=== PATIENT | female | born 1990 | race African-American/Black ===

== ENCOUNTER 2016-08-23 10:08 | Emergency (ER) ==
[2016-08-23 10:25] VITALS: TEMP 97.3; BMI 24.0
[2016-08-23 10:35] VITALS: BP 101/54
--- NOTE | 2016-08-23 10:46 | ED.PDOC ---
General ED Provider: Dr. CHRISTIE SENIOR JR Chief Complaint: Labor Stated Complaint: cm-WATER BROKE APPROX 0930.CONTRACTIONS STARTED AT 0500 THIS AM. WENT TO [facility] AND WAS SENT HOME 0300 DUE TO THINKING HER WATER HAD BROKEN BUT IT HAD NOT.[End]40 WEEKS . WATER BROKE.[id number].DELIVERED IN AMBULANCE AT 0952. crms-09:[id number] babygirl 97.4 160 40 20" 7#2.2oz head 35cm 8/10 Time Seen by Physician: 10:10 Mode of Arrival: Ambulance Information Source: Patient Exam Limitations: Clinical condition Primary Care Provider: Minh Referred to ED by: Other Seen Within Last 72 Hours for Same Complaint By: In-Patient Facility Nursing and Triage Documentation Reviewed and Agree: No CARE ADVOCATE Complaint Exam - Labor/Delivery Complaint/Exam Expected Date of Delivery: 08/22/16 Review of Systems - Review Of Systems Constitutional: Reports: Malaise Eyes: Reports: Other Ears, Nose, Mouth, Throat: Reports: No symptoms Respiratory: Reports: Other Cardiac: Reports: Other GI: Reports: Other : Reports: Other (infant delivered, placenta gradually followed, minimal bleeding infant normal girl) Musculoskeletal: Reports: Other (abdominal pain) Skin: Reports: No symptoms Neurological: Reports: Emotional problems (poorly responsive with contractions vitals fine) Endocrine: Reports: No symptoms Hematologic/Lymphatic: Reports: Other All Other Systems: Other Past Medical History - Past Medical History Previously Healthy: Yes Endocrine: Reports: None Cardiovascular: Reports: None Respiratory: Reports: None Hematological: Reports: None Gastrointestinal: Reports: None Genitourinary: Reports: None Neuro/Psych: Reports: None Musculoskeletal: Reports: None Cancer: Reports: None Last Menstrual Period: 9 MONTHS - Surgical History General Surgical History: Reports: None - Family History Family History: Reports: None - Social History Smoking Status: Former smoker Hx Substance Use: No Alcohol Screening: None Physical Exam - Physical Exam Appearance: Well-appearing, Thin Pain Distress: Moderate Eyes: LYNETTE, EOMI, Conjunctiva clear ENT: Ears normal, Nose normal, Oropharynx normal Neck: Supple Respiratory: Airway patent, Breath sounds clear, Breath sounds equal, Respirations nonlabored Cardiovascular: RRR, Pulses normal, No rub, No murmur GI/: Soft, Tender (gravid) Musculoskeletal: ROM intact, No edema Skin: Warm Neurological: Sensation intact, Motor intact, Reflexes intact, Cranial nerves intact, Alert, Oriented (as above) Psychiatric: Affect appropriate, Mood appropriate Critical Care Note - Critical Care Note Total Time (mins): 5 Course - Course Vital Signs: Temp Pulse Resp BP Pulse Ox 08/23/16 10:35 72 16 101/54 L 100 08/23/16 10:13 97.3 F L 83 16 101/63 100 Departure - Departure Time of Disposition: 10:48 Disposition: TSF SHORT-TRM HOSP Discharge Problem: Precipitate labor Condition: Good Pt referred to PMD for follow-up: Yes Allergies/Adverse Reactions: Allergies No Known Allergies Allergy (Verified 07/05/16 22:18) Home Medications: Ambulatory Orders Ferrous Sulfate [Slow Release Iron] 2 tab PO DAILY 07/05/16 Pnv95/Ferrous Fumarate/FA [ Caplet] 1 each PO DAILY 07/05/16
== END 2016-08-23 11:15 | disposition short-term general hospital (02) ==
LOC: ED 10:08
DX: O62.3 Precipitate labor (principal); Z3A.40 40 weeks gestation of pregnancy; Z37.0 Single live birth
CPT/HCPCS: 99285

== ENCOUNTER 2016-08-23 11:25 | Outpatient (CLI) ==
[2016-08-23 10:25] VITALS: BMI 24.0
== END 2016-08-23 11:26 | disposition home or self-care (01) ==
LOC: AMBL 11:25
PROVIDERS: ATTEND Emergency Medicine
DX: O80 Encounter for full-term uncomplicated delivery (principal); Z37.0 Single live birth; R10.9 Unspecified abdominal pain; R03.1 Nonspecific low blood-pressure reading; Z3A.40 40 weeks gestation of pregnancy

== ENCOUNTER → 2016-08-23 | Outpatient (CLI) ==
[2016-08-23 10:25] VITALS: BMI 24.0
== END ==
LOC: AMBL 09:55
PROVIDERS: ATTEND Emergency Medicine
DX: O80 Encounter for full-term uncomplicated delivery (principal); Z3A.40 40 weeks gestation of pregnancy; Z37.0 Single live birth

== ENCOUNTER 2016-12-02 16:49 | Outpatient (CLI) ==
[2016-12-02 17:05] LABS: FLU INTERNAL QC INTERNAL QC VALID; RAPID FLU A NEGATIVE (NEGATIVE); RAPID FLU B NEGATIVE (NEGATIVE)
== END 2016-12-02 16:50 | disposition home or self-care (01) ==
LOC: LAB 16:49
PROVIDERS: ATTEND Nurse Practitioner Family
DX: R68.83 Chills (without fever) (principal); J02.9 Acute pharyngitis, unspecified
CPT/HCPCS: 87804

== ENCOUNTER 2017-08-13 00:50 | Outpatient (CLI) ==
[2017-08-13 01:15] VITALS: BMI 21.1
== END 2017-08-13 00:51 | disposition left against medical advice (07) ==
LOC: AMBL 00:50
PROVIDERS: ATTEND Emergency Medicine
DX: R06.9 Unspecified abnormalities of breathing (principal)

== ENCOUNTER 2017-08-13 01:07 | Emergency (ER) ==
[2017-08-13 01:15] VITALS: BMI 21.1
--- NOTE | 2017-08-13 02:12 | ED.PDOC ---
General ED Provider: Dr. JAIME ISLAS Chief Complaint: Shortness of Air Stated Complaint: Came for the left side chest pain, has been short of breath for 2-3 days,. thinks having some trouble swallowing, so she is not been drinking much lately/ Time Seen by Physician: 02:10 Mode of Arrival: Walk-In Information Source: Patient Primary Care Provider: EMMIE MORGAN Nursing and Triage Documentation Reviewed and Agree: Yes Reviewed sepsis parameters & appropriate labs ordered?: Yes System Inflammatory Response Syndrome: Not Applicable Sepsis Protocol: For patient's 13 years and over: Temp is 96.8 and below OR 101 and greater Pulse >90 BPM Resp >20/minute Acutely Altered Mental Status Are patient's symptoms suggestive of a new infection, such as: -Pneumonia -Skin, Soft Tissue -Endocarditis -UTI -Bone, Joint Infection -Implantable Device -Acute Abdominal Infection -Wound Infection -Meningitis -Blood Stream Catheter Infection -Unknown Cardiovascular Complaint Exam - Chest Pain Complaint/Exam Onset: Gradual Symptoms Are: Resolved Timing: Intermittent Initial Severity: Mild Current Severity: Mild Location: Reports: Midsternal Pain Radiates: Reports: None Character: Reports: Dull, Aching Aggravating: Reports: None Alleviating: Reports: None Associated Signs and Symptoms: Reports: Short of air. Denies: Diaphoresis, Nausea, Vomiting, Fever, Palpitations, Cough, Hemoptysis, Back pain, Abdominal pain, Dizziness, Calf pain, Calf swelling Related Surgical History: Reports: None History of Healthcare-Acquired Pneumonia: Reports: No AMI/ACS Risk Factors: Reports: None TAD Risk Factors: Reports: None Pulmonary Embolism Risk Factors: Reports: None Prior Care for this Complaint: No Recent Stress Test: No Recent Echo/LV Function: No JVD Present: No Diminshed Breath Sounds: No Reproducible Chest Wall Pain: Yes Bilateral Pulses Present: No Unequal Pulses Noted: No If Risk Factors for AMI/ACS Consider: EKG, Cardiac Enzymes, Serial Studies, Oxygen Differential Diagnoses: Chest Wall Pain, GI Diseasae Review of Systems - Review Of Systems Constitutional: Reports: No symptoms Eyes: Reports: No symptoms Ears, Nose, Mouth, Throat: Reports: No symptoms Respiratory: Reports: Short of air Cardiac: Reports: Chest pain GI: Reports: No symptoms : Reports: No symptoms Musculoskeletal: Reports: No symptoms Skin: Reports: No symptoms Neurological: Reports: No symptoms Endocrine: Reports: No symptoms Hematologic/Lymphatic: Reports: No symptoms All Other Systems: Reviewed and Negative Past Medical History - Past Medical History Previously Healthy: Yes Endocrine: Reports: None Cardiovascular: Reports: None Respiratory: Reports: None Hematological: Reports: None Gastrointestinal: Reports: None Genitourinary: Reports: None Neuro/Psych: Reports: None Musculoskeletal: Reports: None Cancer: Reports: None Last Menstrual Period: 07/21/17 - Surgical History General Surgical History: Reports: None - Family History Family History: Reports: None - Social History Smoking Status: Former smoker Hx Substance Use: No Alcohol Screening: None - Immunizations Tetanus Shot up to Date: Yes Physical Exam - Physical Exam Appearance: Well-appearing, No pain distress, Well-nourished Eyes: LYNETTE, EOMI, Conjunctiva clear ENT: Ears normal, Nose normal, Oropharynx normal Neck: Supple (swollen) Respiratory: Airway patent, Breath sounds clear, Breath sounds equal, Respirations nonlabored Cardiovascular: RRR, Pulses normal, No rub, No murmur GI/: Soft, Nontender, No masses, Bowel sounds normal, No Organomegaly Musculoskeletal: Normal strength, ROM intact, No edema, No calf tenderness Skin: Warm, Dry, Normal color Neurological: Sensation intact, Motor intact, Reflexes intact, Cranial nerves intact, Alert, Oriented Psychiatric: Affect appropriate, Mood appropriate Critical Care Note - Critical Care Note Total Time (mins): 15 Course - Course Orders, Labs, Meds: Orders Category Date Time Status EKG-(ED ONLY) Stat CARDIO 08/13/17 02:08 Ordered CBC W/ AUTO DIFF Stat LAB 08/13/17 02:08 Ordered COMPREHENSIVE METABOLIC PANEL Stat LAB 08/13/17 02:08 Ordered CREATINE KINASE Stat LAB 08/13/17 02:08 Ordered FREE T4 (FREE THYROXINE) Stat LAB 08/13/17 02:08 Ordered THYROID STIMULATING HORMONE Stat LAB 08/13/17 02:08 Ordered TROPONIN I Stat LAB 08/13/17 02:08 Ordered CHEST, 2 VIEWS PA & LAT Stat RADS 08/13/17 02:[address] SOFT TISSUE NECK W/O CONTR Stat RADS 08/13/17 02:08 Ordered Vital Signs: Temp Pulse Resp BP Pulse Ox 08/13/17 01:07 98.5 F 82 18 118/74 98 RONNI Risk Score RONNI Risk Score: Risk Score Odds of by 30D 0 0.1 (0.1-0.2) 1 0.3 (0.2-0.3) 2 0.4 (0.3-0.5) 3 0.7 (0.6-0.9) 4 1.2 (1.0-1.5) 5 2.2 (1.9-2.6) 6 3.0 (2.5-3.6) 7 4.8 (3.8-6.1) Departure - Departure Time of Disposition: 02:14 Disposition: HOME SELF-CARE Discharge Problem: Chest pain Qualifiers: Chest pain type: other chest pain Qualified Code(s): R07.89 - Other chest pain ; R07.8 - Other chest pain Instructions: Chest Pain (ED) Condition: Stable Pt referred to PMD for follow-up: No Additional Instructions: Needs have f/u with PMD in 2-4 days Increase Hydration Allergies/Adverse Reactions: Allergies No Known Allergies Allergy (Verified 08/13/17 01:15) Home Medications: Ambulatory Orders 1 [No Reported Medications] 08/13/17 Disposition Discussed With: Patient
--- NOTE | 2017-08-13 04:07 | CT ---
Exam: CT of the neck without contrast History: Neck swelling Technique: [address] of the neck without intravascular contrast FINDINGS: The exam is technically inhibited without intravascular contrast. The pharynx and trachea appear normal. Normal prevertebral soft tissues and cervical esophagus. Enlarged, heterogeneous an d hypodense thyroid. Normal submandibular and parotid glands. Visualized paranasal sinuses are carlos r. No edematous change seen in the limited fat planes. No pathologic lymph node enlargement apprecia vonda. No acute findings of the skeleton. Impression: 1. Enlarged, heterogeneous and predominately hypodense thyroid. Correlate for thyroid symptoms. 2. No abnormalities of the neck by noncontrast CT otherwise.
[2017-08-13 05:16] VITALS: BP 102/58; TEMP 97.8
--- NOTE | 2017-08-13 09:24 | DI ---
EXAM: Chest PA and lateral HISTORY: Shortness of breath FINDINGS: Prior studies are not available for comparison. The lungs are free of acute airspace or int erstitial opacities. The aorta is normal in caliber. The heart size is normal. The bones are intact. No pneumothorax or pleural effusions are detected. IMPRESSION: No acute cardiopulmonary disease.
== END 2017-08-13 05:10 | disposition home or self-care (01) ==
LOC: ED 01:07
DX: R07.89 Other chest pain (principal); R06.02 Shortness of breath; R13.10 Dysphagia, unspecified
CPT/HCPCS: 36415; 80053; 80306; 81001; 81025; 82550; 82553; 84439; 84443; 84484; 85025; 93005; 93010; 99283

== ENCOUNTER 2018-05-29 15:55 | Emergency (ER) ==
[2018-05-29 16:05] VITALS: BP 108/69; TEMP 97.5; BMI 19.3
--- NOTE | 2018-05-29 17:03 | ED.PDOC ---
General ED Provider: Dr. MARK JHAVERI Chief Complaint: Finger Pain/Injury Stated Complaint: Injured lt thumb. Patient states she accidently closed the car door on the left thumb door resulting Door closed completely on the distal 1 /3 of her thumb. Pt had to open door latch to remove thumb. Thumbnail is broken. Notes found out yesterday is Time Seen by Physician: 16:50 Mode of Arrival: Walk-In Information Source: Patient Primary Care Provider: EMMIE MORGAN Nursing and Triage Documentation Reviewed and Agree: Yes Does patient meet sepsis criteria?: No System Inflammatory Response Syndrome: Not Applicable Sepsis Protocol: For patient's 13 years and over: Temp is 96.8 and below OR 101 and greater Pulse >90 BPM Resp >20/minute Acutely Altered Mental Status Are patient's symptoms suggestive of a new infection, such as: -Pneumonia -Skin, Soft Tissue -Endocarditis -UTI -Bone, Joint Infection -Implantable Device -Acute Abdominal Infection -Wound Infection -Meningitis -Blood Stream Catheter Infection -Unknown Musculoskeletal Complaint Exam - Hand/Wrist Complaint/Exam Location of Pain: Reports: Left, Digit #1 Mechanism of Injury: Reports: Trauma Onset/Duration: this afternoon Symptoms Are: Still present Onset of Pain: Reports: Immediate Initial Severity: Severe Current Severity: Moderate Location: Reports: Discrete Character: Reports: Sharp, Throbbing Alleviating: Reports: Rest Aggravating: Reports: Movement Associated Signs and Symptoms: Reports: Tingling Dominant Hand: Right Related Surgical History: Reports: None Hand/Wrist Findings: Present: Swelling (Lt Thumb), Nail avulsion (Distal 1/3 Nail complete horizonal split-bleeding ) Tenderness: Present: Phalanx. Absent: Radius, Ulna, Snuff box, Carpal, Metacarpal Compartment Syndrome Risk Factors: Absent: Pain, Pallor, Pulselessness, Paresthesias Differential Diagnoses: Sprain, Other (Fracture) Review of Systems - Review Of Systems Constitutional: Reports: No symptoms Eyes: Reports: No symptoms Ears, Nose, Mouth, Throat: Reports: No symptoms Respiratory: Reports: No symptoms Cardiac: Reports: No symptoms GI: Reports: No symptoms : Reports: No symptoms Musculoskeletal: Reports: Joint pain, Joint swelling Skin: Reports: No symptoms Neurological: Reports: No symptoms Endocrine: Reports: No symptoms Hematologic/Lymphatic: Reports: No symptoms All Other Systems: Reviewed and Negative Past Medical History - Past Medical History Previously Healthy: Yes Endocrine: Reports: None Cardiovascular: Reports: None Respiratory: Reports: None Hematological: Reports: None Gastrointestinal: Reports: None Genitourinary: Reports: None Neuro/Psych: Reports: None Musculoskeletal: Reports: None Cancer: Reports: None Last Menstrual Period: 04/21 - Surgical History General Surgical History: Reports: None - Family History Family History: Reports: None - Social History Smoking Status: Former smoker Hx Substance Use: No Alcohol Screening: None - Immunizations Tetanus Shot up to Date: (unknown) Physical Exam - Physical Exam Appearance: Well-appearing, Well-nourished Ill-appearing: None Pain Distress: Moderate Eyes: LYNETTE, EOMI, Conjunctiva clear ENT: Ears normal, Nose normal, Oropharynx normal Respiratory: Airway patent, Breath sounds clear, Breath sounds equal, Respirations nonlabored Cardiovascular: RRR, Pulses normal, No rub, No murmur GI/: Soft, Nontender, No masses, Bowel sounds normal, No Organomegaly Musculoskeletal: Normal strength, ROM intact, No edema, No calf tenderness Skin: Warm, Dry, Normal color Neurological: Sensation intact, Motor intact, Reflexes intact, Cranial nerves intact, Alert, Oriented Psychiatric: Affect appropriate, Mood appropriate Critical Care Note - Critical Care Note Total Time (mins): 60 Course - Course Orders, Labs, Meds: Orders Category Date Time Status HAND, LEFT 3 VIEWS Stat RADS 05/29/18 18:23 Completed THUMB, LEFT Stat RADS 05/29/18 17:03 Completed Vital Signs: Temp Pulse Resp BP Pulse Ox 05/29/18 15:56 97.5 F L 70 18 108/69 97 Departure - Departure Time of Disposition: 19:15 Disposition: HOME SELF-CARE Discharge Problem: Injury of nail bed of left thumb, Fracture of distal phalanx of left thumb Discharge Problem: (Ruled Out): Nailbed laceration, finger Instructions: Thumb Fracture (ED), Nail Avulsion (ED) Condition: Good Pt referred to PMD for follow-up: Yes (advised to leave dressing in place until follow up by pcp.Schedule apt PVP) IPMP verified?: No Additional Instructions: Take antibiotic Take tylenol for pain control Follow up with your PCP clinic in next 24 hrs for evaluation and referral to orthopedic surgeon Prescriptions: Cephalexin [Keflex] 500 mg PO BID #14 capsule Allergies/Adverse Reactions: Allergies No Known Allergies Allergy (Verified 01/07/18 01:15) Home Medications: Ambulatory Orders Cephalexin [Keflex] 500 mg PO BID #14 capsule 05/29/18 Disposition Discussed With: Patient, Family
--- NOTE | 2018-05-29 18:16 | DI ---
EXAM: Three views of the left first digit. HISTORY: Crushing injury. FINDINGS: There is a minimally displaced fracture through the tuft of the distal phalanx of the left first digit. The joint spaces are maintained. There is soft tissue swelling in the left first digit . Impression: Minimally-displaced fracture through the tuft of the distal phalanx of the left first dig it.
--- NOTE | 2018-05-30 07:45 | DI ---
EXAM: Three views of the left hand HISTORY: Slammed hand in door. COMPARISON: Left thumb x-rays same day FINDINGS: The left hand demonstrates oblique minimally displaced fracture of the distal aspect of the distal phalanx of the thumb. The remaining osseous structures are normal. The joint spaces are robbin ntained. The soft tissues are otherwise unremarkable with mild soft tissue swelling of the side frac ture. IMPRESSION: Minimally displaced oblique fracture of the distal aspect of the distal phalanx of the t humb with associated soft tissue swelling.
== END 2018-05-29 20:08 | disposition home or self-care (01) ==
LOC: ED 15:55
DX: S62.522A Displaced fracture of distal phalanx of left thumb, initial encounter for closed fracture (principal); S61.112A Laceration without foreign body of left thumb with damage to nail, initial encounter; W23.0XXA Caught, crushed, jammed, or pinched between moving objects, initial encounter; Z33.1 Pregnant state, incidental
CPT/HCPCS: 99282

== ENCOUNTER 2018-11-26 16:04 | Outpatient (CLI) ==
[2018-09-25 13:01] VITALS: BMI 23.2
== END 2018-11-26 16:05 | disposition home or self-care (01) ==
LOC: RHC-LAB 16:04
PROVIDERS: ATTEND Nurse Practitioner Family
DX: R05 Cough (principal); J02.9 Acute pharyngitis, unspecified
CPT/HCPCS: 87502; 87651

== ENCOUNTER 2019-07-10 17:44 | Observation (INO) ==
[2019-07-10] MEDS ORDERED: SODIUM CHLORIDE 1,000 ML IV STA (18:44)
[2019-07-10] MEDS ORDERED: DILAUDID 0.5 MG/0.5 ML SYRINGE IVP STA (20:35)
--- NOTE | 2019-07-10 21:29 | CT ---
EXAM: CTA of the chest with IV contrast HISTORY: Chest pain COMPARISON: 08/13/2017 chest x-ray TECHNIQUE: Axial CTA of the chest with IV contrast. Sagittal, coronal and 3-D reformats were obtaine d. FINDINGS: No main, lobar or segmental pulmonary emboli are identified. The heart is borderline enlarged. There is mild residual thymic tissue. No mediastinal or hilar lymp hadenopathy is seen. There is a 9 mm right hilar lymph node which does not meet size criteria for si gnificance. A 0.4 cm right lower lobe pulmonary nodule is seen on axial image 44. No focal consolidation, pleura l effusion or pneumothorax is identified. The thyroid is enlarged. IMPRESSION: No evidence of pulmonary embolism. No acute cardiopulmonary findings. Borderline cardiomegaly. 4 mm right lower lobe pulmonary nodule. If the patient is high risk for malignancy, a follow-up CT i n 12 months could be considered. Enlarged thyroid.
--- NOTE | 2019-07-10 21:51 | ED.PDOC ---
General ED Provider: Dr. MARK MORALES Chief Complaint: Chest Pain Stated Complaint: jeovany been having chest pain Time Seen by Physician: 21:51 Mode of Arrival: Walk-In Information Source: Patient Primary Care Provider: EMMIE MORGAN APRN Nursing and Triage Documentation Reviewed and Agree: Yes Does patient meet sepsis criteria?: No System Inflammatory Response Syndrome: Not Applicable Sepsis Protocol: For patient's 13 years and over: Temp is 96.8 and below OR 101 and greater Pulse >90 BPM Resp >20/minute Acutely Altered Mental Status Are patient's symptoms suggestive of a new infection, such as: -Pneumonia -Skin, Soft Tissue -Endocarditis -UTI -Bone, Joint Infection -Implantable Device -Acute Abdominal Infection -Wound Infection -Meningitis -Blood Stream Catheter Infection -Unknown Cardiovascular Complaint Exam Chest Pain Complaint/Exam Onset: Gradual Duration: several days Symptoms Are: Still present Timing: Intermittent Initial Severity: Mild Current Severity: Moderate Location: Reports Diffuse Alleviating: Reports Rest Associated Signs and Symptoms: Denies Diaphoresis, Nausea, Vomiting, Fever, Palpitations, Cough, Hemoptysis, Back pain, Abdominal pain, Dizziness, Short of air, Calf pain and Calf swelling Recent Stress Test: No Recent Echo/LV Function: No JVD Present: No Subcutaneous Emphysema Present: No Diminshed Breath Sounds: No Reproducible Chest Wall Pain: No Bilateral Pulses Present: Yes Unequal Pulses Noted: No Review of Systems Review Of Systems Constitutional: Reports No symptoms Eyes: Reports No symptoms Ears, Nose, Mouth, Throat: Reports No symptoms Respiratory: Reports No symptoms Cardiac: Reports Chest pain GI: Reports No symptoms : Reports No symptoms Musculoskeletal: Reports No symptoms Skin: Reports No symptoms Neurological: Reports No symptoms Endocrine: Reports No symptoms Hematologic/Lymphatic: Reports No symptoms All Other Systems: Reviewed and Negative PFSH Medical History Thyroid nodule Family History Mother Age: 49 No problems noted. Grandfather/Grandmother Type 2 diabetes mellitus Malignant neoplasm of lung Other Anemia Social History Smoking and tobacco status: Never smoker Alcohol intake: never Female Reproductive History Menstrual Hx Hysterectomy: No Hx Tubal Ligation: No Physical Exam Physical Exam Appearance: Well-appearing Ill-appearing: None Pain Distress: Mild Eyes: LYNETTE, EOMI and Conjunctiva clear ENT: Ears normal Neck: Supple Respiratory: Airway patent Cardiovascular: RRR GI/: Soft Musculoskeletal: Normal strength Skin: Warm Neurological: Sensation intact Psychiatric: Affect appropriate and Mood appropriate Interpretation Radiology Interpretation Radiology Interpretation By: Radiologist Radiology Results: Negative Exam Interpreted: CT Scan EKG Interpretation Time of EKG #1: 21:50 Rate: Normal Rhythm: Sinus Ectopy: None [place]: NL ST Segment: Normal Interpretation: nsr Critical Care Note Critical Care Note Total Time (mins): 0 Course Course Hematology/Chemistry: 07/10/19 18:10 07/10/19 18:10 Orders, Labs, Meds: Lab Review 07/10/19 07/10/19 07/10/19 18:10 18:10 18:10 WBC 6.44 RBC 4.24 Hgb 12.3 Hct 37.7 MCV 88.9 MCH 29.0 MCHC 32.6 RDW Coeff of Shaylee 13.2 Plt Count 237 Immature Gran % (Auto) 0.2 Neut % (Auto) 57.1 Lymph % (Auto) 30.9 Churchill % (Auto) 9.0 Eos % (Auto) 2.3 Baso % (Auto) 0.5 Immature Gran # (Auto) 0.0 Neut # (Auto) 3.7 Lymph # (Auto) 2.0 Churchill # (Auto) 0.6 Eos # (Auto) 0.2 Baso # (Auto) 0.0 Sodium 142.7 Potassium 3.44 L Chloride 105.0 Carbon Dioxide 27.7 Anion Gap 13.44 BUN 10.2 Creatinine 0.72 Estimated GFR (MDRD) 115.00 BUN/Creatinine Ratio 14.16 Glucose 98.6 Calcium 10.10 Total Bilirubin 1.08 AST 20.0 ALT 13.2 Alkaline Phosphatase 56.5 Total Creatine Kinase 96.0 Troponin I < 0.012 Total Protein 8.39 H Albumin 4.90 Globulin 3.49 Albumin/Globulin Ratio 1.40 Serum , Qual Negative Orders Category Date Time Status EKG-(ED ONLY) Stat CARDIO 07/10/19 18:43 Completed NPO REMINDER: IMAGING ONCE CARE 07/10/19 18:44 Active ED PHYSICAL SCIENCES PROFESSOR APPLIED .ONCE EMERGENCY 07/10/19 18:43 Active ED IV/MEDIPORT/POWERPORT .ONCE EMERGENCY 07/10/19 18:43 Active CBC W/ AUTO DIFF Stat LAB 07/10/19 18:10 Completed COMPREHENSIVE METABOLIC PANEL Stat LAB 07/10/19 18:10 Completed CREATINE KINASE Stat LAB 07/10/19 18:10 Completed SERUM Stat LAB 07/10/19 18:10 Completed TROPONIN I Stat LAB 07/10/19 18:10 Completed 0.9 % Sodium Chloride [Saline Flush] MEDS 07/10/19 18:43 Active 1 syr IVF PRN PRN Sodium Chloride 0.9% [Sodium Chloride] 1,000 ml MEDS 07/10/19 18:44 Active IV 100 mls/hr CT CHEST PE PROTOCOL Stat RADS 07/10/19 18:43 Completed Medications Generic Name Dose Route Start Last Admin Trade Name Freq PRN Reason Stop Dose Admin Sodium Chloride 1,000 mls @ 100 mls/hr 07/10/19 18:44 07/10/19 18:54 Sodium Chloride IV 07/11/19 04:43 100 mls/hr .Q10H STA Administration Sodium Chloride 1 syr 07/10/19 18:43 07/10/19 18:54 Saline Flush IVF 1 syr PRN PRN Administration To flush IV Vital Signs: Temp Pulse Resp BP Pulse Ox 07/10/19 17:45 98.3 F 70 16 125/73 99 RONNI Risk Score RONNI Risk Score: Risk Score Odds of by 30D 0 0.1 (0.1-0.2) 1 0.3 (0.2-0.3) 2 0.4 (0.3-0.5) 3 0.7 (0.6-0.9) 4 1.2 (1.0-1.5) 5 2.2 (1.9-2.6) 6 3.0 (2.5-3.6) 7 4.8 (3.8-6.1)
[2019-07-10] MEDS ORDERED: TYLENOL PO PRN (21:52)
[2019-07-10 23:45] VITALS: BMI 20.6
[2019-07-11] MEDS ORDERED: K-DUR PO STA (08:17)
[2019-07-11] MEDS ORDERED: LOVENOX SUBCUT SCH (09:00)
--- NOTE | 2019-07-11 13:32 | STRESSECHO ---
Date of Test: 07/11/19 Ordering Physician: HOSPITALIST--RON/ EMMIE MORGAN Reason for Exam: CHEST PAIN Smoking History: NONE Height: 64" Weight: 119 LBS Current Medications: NONE Resting EKG: SINUS RHYTHM/ NO ACUTE CHANGES Target Heart Rate: 161/190 S-T SEGMENT STAGE MPH/GRADE HEART RATE BPM BLOOD PRESSURE MMHG RHYTHM +/- ELEVATION DEPRESSION SYMPTOMS AT REST 57 BPM 112/62 MMHG SR X NONE 1 1.7/10% 125 BPM 110/58 MMHG SR X NONE 2 2.5/12% 148 BPM 128/55 MMHG SR X NONE 3 3.4/14% 4 4.2/16% 5 5.0/18% Immediately After 161 BPM SR X MET TARGET Minutes Post Exercise 5:00 65 BPM 110/54 MMHG SR X NONE Minutes Post Exercise DURATION OF EXERCISE: 7:00 MAXIMUM HEART RATE REACHED: 161 BPM REASON FOR TERMINATION: TARGET MET 98% OXYGEN SATURATION WITH EXERCISE ON ROOM AIR METS 10.0 INTERPRETATION: 1. NO EVIDENCE OF ISCHEMIA BY ST-T WAVE 2. NO CHEST PAIN OR DISCOMFORT 3. NO ARRHYTHMIAS 4. BLOOD PRESSURE RESPONSE: NORMAL NORMAL LEFT VENTRICULAR CONTRACTILITY--RESTING AND POST EXERCISE MTDD
--- NOTE | 2019-07-11 13:39 | ECHOSTRESS ---
Date of Exam: 07/11/19 Ordering Physician: HOSPITALIST--MARK VELASQUEZ/ EMMIE MORGAN Reason for Echo: CHEST PAIN, STRESS TEST--NO ISCHEMIA M-Mode Normal Adult Results LV Dimensions Normal Adult Results AoV Opening excursions >1.6 LVEDD-base- 3.5-5.8 Ao root dimensions 2.0-3.7 LVESD-base- 3.1-4.6 L. Atrium dimensions 1.9-3.8 Post. Wall thickness 0.8-1.1 IV septum (thickness) 0.7-1.2 Post. Wall excursion 0.72-1.3 Septal motion Systolic motion R. Ventricular cavity 1.5-2.0 LVEF 60% Paradoxical septal wall motion 2-D: NORMAL LEFT VENTRICULAR CONTRACTILITY--RESTING AND POST EXERCISE M-MODE: MV: AV: TV: PV: CHAMBER SIZE: WALL MOTION:NORMAL LEFT VENTRICULAR CONTRACTILITY--RESTING AND POST EXERCISE PERICARDIUM: INTERPRETATION: 1. NORMAL LEFT VENTRICULAR CONTRACTILITY--RESTING AND POST EXERCISE MTDD
--- NOTE | 2019-07-11 13:43 | ECHO2D ---
Date of Exam: 07/11/19 Ordering Physician: HOSPITALIST--MARK VELASQUEZ/ EMMIE MORGAN Room #: 117 Reason for Echo: CHEST PAIN M-Mode Normal Adult Results LV Dimensions Normal Adult Results AoV Opening excursions >1.6 >1.6 LVEDD-base- 3.5-5.8 3.4 Ao root dimensions 2.0-3.7 2.5 LVESD-base- 3.1-4.6 L. Atrium dimensions 1.9-3.8 3.2 Post. Wall thickness 0.8-1.1 1.0 IV septum (thickness) 0.7-1.2 1.0 Post. Wall excursion 0.72-1.3 NORMAL Septal motion NORMAL Systolic motion R. Ventricular cavity 1.5-2.0 LVEF 60% 59% Paradoxical septal wall motion NORMAL 2-D : 2-D M Mode Echocardiogram was performed using apical four chamber and left parasternal long and short axis views. Mitral, tricuspid and aortic valves appear to be normal. Contractility of the left ventricle seems to be normal, so is the cavity size. Left atrial cavity size and aortic root appear to be normal. There is no pericardial effusion. There is no thrombus noted in the left ventricle or left atrial cavity. No mitral valve prolapse noted. M-MODE: MV: NORMAL AV: NORMAL TV: NORMAL PV: CHAMBER SIZE: NORMAL WALL MOTION: NORMAL PERICARDIUM: NORMAL INTERPRETATION: 1. NORMAL 2 "D" "M" MODE ECHO MTDD
[2019-07-11 13:50] VITALS: BP 109/67; TEMP 98.4
--- NOTE | 2019-07-16 07:52 | PN ---
CODING This patient is a new patient seen for the first time consultation with Dr. Kelly 07/11/19 GEORGE
--- NOTE | 2019-07-16 08:47 | CONS ---
DATE OF SERVICE: 07/11/19 CHIEF COMPLAINT: Chest pain 24 hours before Emergency Department visit, mid sternal/left arm 5/10 = nonexertional/no shortness of breath at rest, at times sharp. The patient previously had these symptoms but never had been checked. HISTORY OF PRESENT ILLNESS: The patient's chest pain is noncardiac by history, sharp pains localized. Also pain in both shoulders nonexertional. The patient had echocardiogram which was normal with normal LV contractility. She had a stress echo done with good exercise tolerance with no evidence of ischemia. Considering the patient's history and normal cardiac markers and negative echo and stress echo the patient is noncardiac. Her lipid profile is acceptable. The patient is nonsmoker. REVIEW OF SYSTEMS: CONSTITUTIONAL: Positive for fatigue. No night sweats. No malaise, lethargy. No fever or chills. HEENT: Eyes: No visual changes. No eye pain. No eye discharge. ENT: No runny nose. No epistaxis. No sinus pain. No sore throat. No odynophagia. No ear pain. No congestion. RESPIRATORY: No cough, no congestion. No hemoptysis. CARDIOVASCULAR: Chest pain nonexertional. No angina symptoms. No CHF symptoms. No palpitations. No shortness of breath. GASTROINTESTINAL: No abdominal pain. No nausea or vomiting. No diarrhea or constipation. No hematemesis. No hematochezia. GENITOURINARY: No urgency. No frequency. No dysuria. No hematuria. No obstructive symptoms. No discharge. No pain. No significant abnormal bleeding. MUSCULOSKELETAL: No musculoskeletal pain. No joint swelling. No arthritis. NEUROLOGICAL: Dizziness Monday night 07/09 (24 hours before Emergency Department visit). No history of headache. No neck pain. No syncope. No seizures. PSYCHIATRIC: Anxious. No depression. No suicidal thoughts. No homicidal thoughts. SKIN: No rash. No lesions. No wounds. ENDOCRINE: Thyroid no medications. No unexplained weight loss. No weight gain. HEMATOLOGIC/LYMPHATIC: No anemia. No purpura. No petechiae. No prolonged or excessive bleeding. No palpable lymph nodes. SOCIAL HISTORY: The patient is a nonsmoker, no alcohol use. MEDICATIONS: None. ALLERGIES: NKDA PAST MEDICAL/SURGICAL HISTORY: Goiter plus nodules (two years) benign T4 0.57 (09/2018) Hysterectomy Flu A 11/2018 PHYSICAL EXAMINATION: VITAL SIGNS: Pulse 54, BP 107/52, Temperature 98, 02 sat 100 on room air, weight 120 lbs, 5 oz. HEENT: Head normocephalic, atraumatic. Eyes: Extraocular muscles are intact. Pupils are equal, round and reactive to light and accommodation. Ears: No lesions. Nose appeared normal. Throat: No exudate or erythema. NECK: Supple. No JVD, no carotid bruit. No lymphadenopathy or thyromegaly. LUNGS: Clear to auscultation. Percussion note normal. Chest symmetrical. HEART: S1, S2, no S3. No murmurs. No cyanosis or clubbing. No ascites. Pulses: Dorsalis pedis and posterior tibial pulses +1 bilaterally. ABDOMEN: Soft. Nontender. Bowel sounds active. No CVA tenderness. No mass felt. EXTREMITIES: No edema. Full range of motion of all extremities, equal. NEUROLOGIC: No focal deficit. Cranial nerves II through XII are grossly intact. No headache, no double vision or headache. SKIN: Not dry. Intact. Turgor - normal. LYMPHATIC: No palpable lymph nodes/no lymphedema. MUSCULOSKELETAL: Normal joints with no swelling. Muscle tone is normal. LABS/IMAGING: CT chest with contrast - normal. Negative markers/EKG. ASSESSMENT: 1. CHEST PAIN, NONCARDIAC - NONEXERTIONAL, RULE OUT CA/ISCHEMIA RECOMMENDATIONS: 1. Telemetry sinus rhythm/no ST-T wave changes. 2. Will do Echo, stress echo. 3. Telemetry. CONDITION: Stable. Thanks for the referral, will follow. GEORGE
--- NOTE | 2019-07-17 13:11 | SSS ---
PRINCIPAL DIAGNOSIS: 1. CHEST PAIN. DISCUSSION: This is a very pleasant 28-year-old lady who presented to the Emergency Department with chest pain that has been going on for several days. She described it as a pressure. Occasionally associated with shortness of breath. She does have a family history. She was seen in the Emergency Department and admitted for further evaluation of her chest pain. PAST MEDICAL HISTORY: MEDICATIONS: None ALLERGIES: NKDA PAST MEDICAL HISTORY: Thyroid nodule SOCIAL HISTORY: No history of alcohol or tobacco use noted. She does admits to using medical marijuana. FAMILY HISTORY: Positive for diabetes and lung cancer. REVIEW OF SYSTEMS: No headaches, visual changes, tinnitus, hemoptysis, abdominal pain, blood in the stool urinary symptoms or seizures. PHYSICAL EXAMINATION: VITAL SIGNS: Temperature 98.3, pulse 70, respiratory rate 16, BP 125/73. Oxygen saturation 99%. HEENT: Pupils are round. NECK: Supple. CHEST: Clear. CARDIOVASCULAR: Regular rate and rhythm. ABDOMEN: Soft, nontender. EXTREMITIES: Distal extremities without cyanosis or edema. Lab studies unrevealing. In the Emergency Department she had a CTA of the chest revealing no evidence of pulmonary embolism. She does have a 4 mm right lower lobe pulmonary nodule for which followup chest CT in 6 months is recommended. CLINICAL COURSE: Because of her chest pain, she was admitted to my services as hospitalist. Serial EKGs and troponins were unrevealing. She was kindly seen by Dr. Silvestre where echo, stress echo where unrevealing for ischemia. At this point, her pain was improved and she was discharged. She is going to followup with her primary care doctor to discover other causes of chest pain including esophageal, gallbladder or anxiety. She understands to followup with her primary care doctor for the pulmonary nodule. Please see orders. MTDD
== END 2019-07-11 15:20 | disposition home or self-care (01) ==
LOC: MEDSURG B 17:44 → ED 17:44 → MEDSURG B 22:55
PROVIDERS: ADMIT Family Medicine; ATTEND Family Medicine
DX: R06.02 Shortness of breath; R07.9 Chest pain, unspecified